=== PATIENT | male | born 1990 | race African-American/Black ===

== ENCOUNTER 2017-06-04 19:43 | Emergency (ER) | payer OTHER, BC ==
[2017-06-04 20:11] VITALS: BP 139/80
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
--- NOTE | 2017-06-04 21:25 | RADIOLOGY REPORT (SQ) ---
EXAM DESCRIPTION: CT HEAD WITHOUT COMPLETED DATE/TIME: 06/04/2017 9:17 pm REASON FOR STUDY: headache COMPARISON: None. TECHNIQUE: Axial images acquired through the brain without intravenous contrast. Images reviewed wi th bone, brain and subdural windows. Images stored on PACS. All CT scanners at this facility use dose modulation, iterative reconstruction, and/or weight based d osing when appropriate to reduce radiation dose to as low as reasonably achievable (ALARA). [facility]: Dose Right [facility]: CareDose [facility]: Dose Right [facility]: Teradose 4D [facility]: BlockSpring RADIATION DOSE: mGy. LIMITATIONS: None. FINDINGS: VENTRICLES: Normal size and contour. CEREBRUM: No masses. No hemorrhage. No midline shift. No evidence for acute infarction. Normal gra y/white matter differentiation. No areas of low density in the white matter. CEREBELLUM: No masses. No hemorrhage. No alteration of density. No evidence for acute infarction. EXTRAAXIAL SPACES: No fluid collections. No masses. ORBITS AND GLOBE: No intra- or extraconal masses. Normal contour of globe without masses. CALVARIUM: No fracture. PARANASAL SINUSES: Right maxillary mucous retention cyst SOFT TISSUES: No mass or hematoma. OTHER: No other significant finding. IMPRESSION: NORMAL BRAIN CT WITHOUT CONTRAST. EVIDENCE OF ACUTE STROKE: NO. COMMENT: Quality ID # [id number]: Final reports with documentation of one or more dose reduction techniques (e.g., Automated exposure control, adjustment of the mA and/or kV according to patient size, use of iterative reconstruction technique) TECHNICAL DOCUMENTATION: JOB ID: [id number] [employer]- All Rights Reserved
== END 2017-06-04 21:37 | disposition home or self-care (01) ==
LOC: ER 19:43
DX: S06.0X0A Concussion without loss of consciousness, initial encounter (principal); V89.2XXA Person injured in unspecified motor-vehicle accident, traffic, initial encounter; Z87.891 Personal history of nicotine dependence
CPT/HCPCS: 70450; 99284

== ENCOUNTER 2017-06-22 19:05 | Emergency (ER) | payer OTHER, BC ==
[2017-06-22] MEDS ORDERED: ACETAMINOPHEN 325 MG TABLET PO ONE (21:36)
[2017-06-22] MEDS ORDERED: NORMAL SALINE 1000 ML 1,000 ML IV PRN (22:05)
--- NOTE | 2017-06-22 22:07 | ER Document Report ---
ED General - General Chief Complaint: Flu Symptoms Stated Complaint: FLU LIKE SYMPTOMS Time Seen by Provider: 06/22/17 21:56 Mode of Arrival: Ambulatory Information source: Patient Notes: This is a 26-year-old man that presents to the emergency room with fever, chills , cough, myalgias for the past several hours. Patient states that his symptoms started this morning. TRAVEL OUTSIDE OF THE [place] IN LAST 30 DAYS: No - HPI Onset: This morning Onset/Duration: Gradual Quality of pain: Dull Severity: Moderate Pain Level: 3 Associated symptoms: Chills, Nonproductive cough, Fever, Other - Myalgias Exacerbated by: Denies Relieved by: Denies Similar symptoms previously: No Recently seen / treated by doctor: No - Related Data Allergies/Adverse Reactions: No Known Allergies Allergy (Unverified 06/04/17 19:45) Past Medical History - General Information source: Patient - Social History Smoking Status: Never Smoker Cigarette use (# per day): No Chew tobacco use (# tins/day): No Frequency of alcohol use: None Drug Abuse: None Lives with: Family Family History: None Patient has suicidal ideation: No Patient has homicidal ideation: No - Medical History Medical History: Negative Renal/ Medical History: Denies: Hx Peritoneal Dialysis Past Surgical History: Reports: Hx Orthopedic Surgery - 2 R shoulder - Immunizations Hx Diphtheria, Pertussis, Tetanus Vaccination: No Review of Systems - Review of Systems Constitutional: Chills, Fever EENT: Throat pain Cardiovascular: No symptoms reported Respiratory: See HPI, Cough Gastrointestinal: No symptoms reported Genitourinary: No symptoms reported Male Genitourinary: No symptoms reported Musculoskeletal: See HPI Skin: No symptoms reported. denies: Rash Hematologic/Lymphatic: No symptoms reported Neurological/Psychological: Other - No photophobia or neck stiffness. denies: Confusion, Seizure, Headaches Physical Exam - Vital signs Vitals: Temp Pulse BP Pulse Ox 103.9 F H 113 H 141/69 H 99 06/22/17 19:14 06/22/17 19:14 06/22/17 19:14 06/22/17 19:14 Notes: Physical exam: GENERAL: 86-year-old man, alert and oriented 3, febrile, appears uncomfortable HEAD: Atraumatic, normocephalic. EYES: Pupils equal round and reactive to light, extraocular movements intact, sclera anicteric, conjunctiva are normal. ENT: TMs normal, nares patent, oropharynx clear without exudates. Moist mucous membranes. NECK: Normal range of motion, supple without obvious mass or JVD. LUNGS: Breath sounds clear to auscultation bilaterally and equal. No wheezes rales or rhonchi. HEART: Regular rate and rhythm without murmurs, rubs or gallops. ABDOMEN: Soft, normoactive bowel sounds. No tenderness to palpation. No guarding, no rebound. No masses appreciated. EXTREMITIES: Normal range of motion, no pitting or edema. No clubbing or cyanosis. NEUROLOGICAL: Cranial nerves II through XII grossly intact. Normal speech, moving all extremities. PSYCH: Normal mood, normal affect. SKIN: Warm, Dry, normal turgor, no rashes or lesions noted. Course - Re-evaluation Re-evalutation: 06/23/17 03:23 She did look better after IV fluids. Chest x-ray, flu study and strep were negative. Presentation most consistent with viral syndrome. At the time of discharge, I have instructed the patient at the bedside with regards to return precautions and follow-up recommendations. The opportunity for questions was given. The patient has verbalized understanding of these instructions and the need for follow-up. - Vital Signs Vital signs: Temp Pulse Resp BP Pulse Ox 100.0 F 100 19 119/58 L 97 06/23/17 00:26 06/23/17 00:26 06/23/17 00:26 06/23/17 00:26 06/23/17 00:26 - Diagnostic Test Radiology reviewed: Image reviewed, Reports reviewed - Test x-ray shows no infiltrates or effusions Discharge - Discharge Clinical Impression: Influenza-like illness Condition: Stable Disposition: HOME, SELF-CARE Additional Instructions: As we discussed, you tested negative for the flu and for strep. Your chest x- ray showed no evidence of pneumonia. Thank you for choosing [facility] for your care. The examination and treatment you have received in the Emergency Department today has been rendered on an emergency basis only and is not intended to be a substitute for complete medical care. You should contact your doctor as it is important that she/he examine you for any new or remaining problems. If your problem worsens or new symptoms appear and you are unable to arrange prompt follow-up care, return to the Emergency Department. Specific signs to look out for: Return to the emergency room for shortness of breath, not tolerating fluids, any concerns or getting worse. Any other instructions: Rest, drink plenty of fluids, take Tylenol and ibuprofen for fever, take Mucinex to help bring up sputum. Primary Care Doctor's affiliated with [facility]: If you do not have a primary care doctor or you are unable to get an appointment during that time, you can try one of the doctor's below. These are internal medicine doctor's that have admitting priveledges to the hospital ( they will see you both in the office as well as in this hospital if you are ever hospitalized here). Dr. Eric Poole [address], [place] [address] [phone] Dr Jackson Address: [address] [place] [address] , [place] [address] Dr Arana Address: [address] [facility] , [place] [address] If you don't have insurance: follow-up at the [facility] which is a free clinic. [address], [place] [address] [phone] Forms: Return to Work
--- NOTE | 2017-06-22 22:54 | RADIOLOGY REPORT (SQ) ---
EXAM DESCRIPTION: CHEST PA/LAT COMPLETED DATE/TIME: 06/22/2017 10:36 pm REASON FOR STUDY: cough, fever COMPARISON: None. EXAM PARAMETERS: NUMBER OF VIEWS: two views TECHNIQUE: Digital Frontal and Lateral radiographic views of the chest acquired. RADIATION DOSE: NA LIMITATIONS: none FINDINGS: LUNGS AND PLEURA: Mild central bronchial wall thickening. No consolidation, masses or pn eumothorax. No pleural effusion. MEDIASTINUM AND HILAR STRUCTURES: No masses or contour abnormalities. HEART AND VASCULAR STRUCTURES: Heart normal size. No evidence for failure. BONES: No acute findings. HARDWARE: None in the chest. OTHER: No other significant finding. IMPRESSION: Bronchitis. No consolidation. TECHNICAL DOCUMENTATION: JOB ID: [id number] [place]-[id number] [employer]- All Rights Reserved
[2017-06-22 23:42] LABS: A TYPE INFLUENZA AG NEGATIVE (NEGATIVE); B INFLUENZA AG NEGATIVE (NEGATIVE)
[2017-06-23 00:33] VITALS: BP 119/58
== END 2017-06-23 00:33 | disposition home or self-care (01) ==
LOC: ER 19:05
DX: R50.9 Fever, unspecified (principal); M79.1 Myalgia; R05 Cough
CPT/HCPCS: 99284; 96360; 87070; 87880; 87804; 71046; J7030